=== PATIENT | female | born 1985 | race Caucasian/White ===

== ENCOUNTER → 2017-10-18 07:18 | Outpatient (CLI) | payer BC, SELFPAY ==
[2017-10-18 09:21] LABS: Alanine Aminotransferase 19 U/L (12-78); Albumin Level 3.4 gm/dL (3.4-5.0); Alkaline Phosphatase 41 U/L (46-116); Anion Gap 13.4 mEq/L (5-15); Aspartate Amino Transferase 10 U/L (15-37); Bilirubin,Total 0.5 mg/dL (0.2-1.0); Blood Urea Nitrogen 13 mg/dL (7-18); Calcium 8.5 mg/dL (8.5-10.1); Carbon Dioxide 26 mmol/L (21.0-32.0); Chloride 108 mmol/L (98-107); Chol/HDL Ratio 2.3 (1-3.5); Cholesterol 187 mg/dL (140-200); Creatinine,Serum 0.76 mg/dL (0.55-1.02); Estimated Glomerular Filt Rate 88 ml/min (>60); GFR (African American) 107 ML/MIN (>60); Globulin 3.3 gm/dl (1.3-3.2); Glucose 88 mg/dL (74-106); HDL Cholesterol 83 mg/dL (29-89); LDL Cholesterol 91 mg/dL (0-130); Potassium 4.4 mmoL/L (3.5-5.1); Sodium 143 mmol/L (136-145); Thyroid Stimulating Hormone 0.95 uIU/ml (0.358-3.740); Total Protein,Serum 6.7 gm/dL (6.4-8.2); Triglycerides 66 mg/dL (30-200); VLDL Cholesterol 13 mg/dL (0-40)
== END ==
PROVIDERS: PCP Physician Assistant; Visit Provider Physician Assistant
DX: Z13.29 Encounter for screening for other suspected endocrine disorder (principal); Z13.220 Encounter for screening for lipoid disorders
CPT/HCPCS: 36415; 80053; 80061; 84443

== ENCOUNTER → 2019-03-17 11:28 | Outpatient (CLI) | payer BC, SELFPAY ==
[2019-03-18 18:24] LABS: H. pylori Breath Test Negative (Negative)
== END ==
PROVIDERS: Visit Provider Physician Assistant
DX: R10.13 Epigastric pain (principal)
CPT/HCPCS: 83013

== ENCOUNTER → 2019-03-18 09:56 | Outpatient (CLI) | payer BC, SELFPAY | PROVIDERS: PCP Family Medicine; Visit Provider Physician Assistant | DX: R55 Syncope and collapse (principal) | CPT/HCPCS: 93225; 93226 ==

== ENCOUNTER → 2019-06-01 15:33 | Outpatient (CLI) | payer BC, SELFPAY ==
--- NOTE | 2019-06-01 15:42 | XR_ITS ---
PROCEDURE: XR KNEE LT 4V CLINICAL INDICATION: PATELLAR TENDONITIS OF LT KNEE Knee pain COMPARISON: No exams were available for comparison FINDINGS: There are mild osteoarthritic changes of all 3 compartments. No fracture or dislocation. No lytic or blastic change. There is a small loose body along the anterior aspect of the knee joint at approximately 5 mm. IMPRESSION: Osteoarthritis with loose body Dictated by: Hdaley Conway MD 06/01/2019 16:13 Electronically signed by Hadley Conway MD in [place] 06/01/2019 16:13
== END ==
PROVIDERS: PCP Physician Assistant; Visit Provider Physician Assistant
DX: M76.52 Patellar tendinitis, left knee (principal)
CPT/HCPCS: 73564

== ENCOUNTER → 2019-10-26 07:11 | Outpatient (CLI) | payer BC, SELFPAY ==
[2019-10-26 08:18] LABS: Hemoglobin A1C 5.1 % (0.0-7.0)
[2019-10-26 09:38] LABS: Chol/HDL Ratio 2.3 (1-3.5); Cholesterol 185 mg/dL (140-200); HDL Cholesterol 81 mg/dL (29-89); Triglycerides 91 mg/dL (30-200); VLDL Cholesterol 18 mg/dL (0-40)
[2019-10-26 09:53] LABS: Basophils # 0.1 K/mm3 (0-0.2); Basophils % 1.1 % (0.1-2.0); Eosinophils # 0.2 K/mm3 (0.0-0.4); Eosinophils % 3.5 % (0.1-12.0); Hematocrit 38.9 % (37.0-47.0); Hemoglobin 13.1 g/dL (12.2-16.2); Lymphocytes # 2.1 K/mm3 (0.7-4.5); Lymphocytes % 32.7 % (10-50); Mean Corpuscular HGB Conc 33.8 g/dL (31.8-35.4); Mean Corpuscular Volume 91.6 fl (81-99); Mean Platelet Volume 8.5 fl (7.4-10.4); Monocytes # 0.3 K/mm3 (0.1-1.0); Neutrophils # 3.8 K/mm3 (1.8-7.8); Neutrophils % 57.7 % (37.0-80.0); Platelet Count 303 K/mm3 (142-424); Red Blood Count 4.24 M/mm3 (4.20-5.40); Red Cell Distribution Width 12.6 % (11.5-17.5); White Blood Count 6.5 K/mm3 (4.8-10.8)
[2019-10-26 10:38] LABS: Alanine Aminotransferase 14 U/L (12-78); Albumin Level 3.9 g/dl (3.5-5.0); Alkaline Phosphatase 55 U/L (38-126); Aspartate Amino Transferase 22 U/L (14-36); Bilirubin,Total 0.4 mg/dl (0.2-1.3); Blood Urea Nitrogen 14 mg/dl (7-17); Calcium 9.3 mg/dl (8.4-10.2); Carbon Dioxide 27 mmol/L (22.0-30.0); Chloride 104 mmol/L (98-107); Estimated Glomerular Filt Rate 82 ml/min (>60); GFR (African American) 99 ML/MIN (>60); Glucose 98 mg/dl (74-100); Sodium 137 mmol/L (136-145); Total Protein,Serum 6.7 g/dl (6.3-8.2)
[2019-10-26 11:09] LABS: Thyroid Stimulating Hormone 1.66 uIU/mL (0.465-4.68)
[2019-10-26 11:38] LABS: Albumin/Globulin Ratio 1.4 (1.1-1.8)
[2019-10-26 11:39] LABS: Globulin 2.8 g/dL (1.3-3.2)
[2019-10-26 23:31] LABS: Direct LDL Cholesterol 98.12 mg/dL (100-129)
[2019-10-27 07:17] LABS: HIV Screen 4th Generation wRfx Non Reactive (Non Reactive)
[2019-10-29 09:36] LABS: Hepatitis B Surface Antigen Negative (Negative); Rapid Plasma Reagin Ab Titer Non Reactive (NonRea<1:1)
== END ==
PROVIDERS: Visit Provider Student in an Organized Health Care Education/Training Program
DX: Z11.3 Encounter for screening for infections with a predominantly sexual mode of transmission (principal)
CPT/HCPCS: 36415; 80053; 80061; 83036; 84443; 85025; 86592; 86703; 87340; G0432

== ENCOUNTER 2020-07-03 08:32 | Emergency (ER) | payer BC, SELFPAY ==
[2020-07-03 08:38] VITALS: BP 128/86; PULSE 79; RESP 18; TEMP 36.7; O2SAT 100; BMI 24.2
--- NOTE | 2020-07-03 08:41 | XR_ITS ---
PROCEDURE: XR ANKLE RT 2V CLINICAL INDICATION: fall Pain COMPARISON: No exams were available for comparison FINDINGS: Nondisplaced fracture dorsal and proximal aspect of the navicular. There is a faint calcific density along the anterior and distal aspect of the tibia which could be due to small avulsion injury age indeterminate. IMPRESSION: Age indeterminate fracture of the anterior and proximal aspect of the navicular as well as the anterior distal tibia Dictated by: Hadley Conway MD 07/03/2020 09:06 Hadley Conway MD in [place] 07/03/2020 09:06
--- NOTE | 2020-07-03 08:42 | XR_ITS ---
PROCEDURE: XR FOOT RT MIN 3V CLINICAL INDICATION: fall Posttraumatic pain COMPARISON: No exams were available for comparison FINDINGS: There is a nondisplaced oblique fracture through the proximal and dorsal aspect of the navicular age indeterminate. The joint spaces are well-preserved. No significant degenerative/arthritic changes. No erosive changes evident. Other findings:None. IMPRESSION: Nondisplaced age indeterminate fracture dorsal and proximal aspect of the navicular Dictated by: Hadley Conway MD 07/03/2020 09:07 Hadley Conway MD in [place] 07/03/2020 09:07
--- NOTE | 2020-07-03 08:43 | HMH.EDGENADL ---
ED Disposition Clinical Impression: Avulsion fracture of right ankle Qualifiers: Encounter type: initial encounter Fracture type: closed Qualified Code(s): S82.891A - Other fracture of right lower leg, initial encounter for closed fracture Navicular fracture, foot Qualifiers: Encounter type: initial encounter Fracture type: closed Fracture alignment: nondisplaced Laterality: right Qualified Code(s): S92.254A - Nondisplaced fracture of navicular [scaphoid] of right foot, initial encounter for closed fracture Disposition: Home, Self-Care Condition on Discharge: Good Instructions: How to Prevent Falls Additional Instructions: You were seen on an emergency basis. It is very important that you follow up with your primary care provider and/or specialist as we discussed within 2 days. All labs and imaging were obtained and interpreted here to rule out life threatening emergencies, but your final results should be reviewed by your primary doctor at your follow up appointment. Please return to the emergency department if any of your symptoms worsen, or if they do not improve as we discussed. Referrals: Prabha Collado MD [Primary Care Provider] - Estuardo Owen MD [Staff Physician] - - Critical Care Critical Care Time: No Attestation: On , the high probability of a clinically significant, sudden or life threatening deterioration of the following system(s) required my full and direct attention, intervention and personal management. The time I documented below is in addition to time spent performing reported procedures but includes the following listed in this critical care notation. Medical Decision Making - Medical Records Medical records reviewed: Yes: I reviewed the patient's medical records. - Negro Inquiry Pt receiving controlled substance: No Vital Signs: 07/03/20 08:38 07/03/20 09:11 Temperature 98.1 F Temperature Source Oral Pulse Rate [Radial] 79 76 Respiratory Rate 18 Blood Pressure [Right Arm] 128/86 114/71 Blood Pressure Mean [Right Arm] 100 85 Blood Pressure Source [Right Arm] Automatic Cuff Automatic Cuff Blood Pressure Position [Right Arm] Sitting Sitting 02 Sat by Pulse Oximetry 100 100 Oxygen Delivery Method Room Air Room Air Medical Decision Narrative: 35-year-old female presenting after an ankle injury from a fall. Distal neurovascularly intact. X-rays obtained of the right foot and ankle which showed a nondisplaced navicular fracture and a possible avulsion fracture of the ankle. No clinical suspicion for Maisonneuve injury. Pain under control here. Place the patient in an Ortho boot, give her crutches and keep her nonweightbearing until follow-up with orthopedics. General Adult HPI - General Chief complaint: Fall Stated complaint: ao 1026 @ 0700 injury R foot Time Seen by Provider: 07/03/20 08:44 Mode of Arrival: Ambulatory Limitations: No Limitations Description of Symptoms (Recalled from ER Triage Doc. by RN): fell down a couple of stairs and hurt right ankle. - History of Present Illness HPI narrative: Presenting with an ankle injury that occurred shortly prior to presentation. Patient was walking down a step when she had a eversion injury to her right ankle down 1 step. Her pain is localized to her anterior ankle. She has been ambulatory since. She took Tylenol for the symptoms which have helped. Head strike, loss of consciousness or other injuries. - Related Data Previous Rx's Medication Instructions Recorded Azithromycin [Z-Hardik 250mg Tab*] 250 mg PO UD DOSE PK #6 tab 07/28/19 Brompheniramine/Pseudoephed/Dm 5 ml PO Q6HP PRN #240 syrup 07/28/19 [Bromfed Dm Cough Syrup] methylPREDNISolone [Medrol] 4 mg PO DIRECTED 6 Days #21 07/28/19 tab.ds.pk Allergies Allergy/AdvReac Type Severity Reaction Status Date / Time PENICILLIN Allergy Severe C-[id number]-TWFM/THROAT, Uncoded 08/26/17 14:46 [facility] History - Hepatitis A Scree
--- NOTE | 2020-07-03 08:46 | PC.NURSE ---
pt with rad. v/s delayed.
[2020-07-03 09:11] VITALS: BP 114/71; PULSE 76; O2SAT 100
[2020-07-03 09:25] VITALS: BP 114/71; PULSE 76; RESP 18; TEMP 36.7; O2SAT 100
== END 2020-07-03 09:26 | disposition home or self-care (01) ==
PROVIDERS: Emergency Provider Physician Assistant; PCP Family Medicine
DX: S92.254A Nondisplaced fracture of navicular [scaphoid] of right foot, initial encounter for closed fracture (principal); W10.9XXA Fall (on) (from) unspecified stairs and steps, initial encounter; Y92.019 Unspecified place in single-family (private) house as the place of occurrence of the external cause
CPT/HCPCS: 29515; 73600; 73630; 99284

== ENCOUNTER 2020-07-09 09:28 | Emergency (ER) | payer BC, SELFPAY ==
[2020-07-09 09:40] VITALS: BP 143/87; PULSE 91; RESP 20; TEMP 37.1; O2SAT 99; BMI 34.2
--- NOTE | 2020-07-09 10:13 | HMH.EDUTC ---
[facility] [place] Clinical Impression: UTI (urinary tract infection) Qualifiers: Urinary tract infection type: site unspecified Hematuria presence: without hematuria Qualified Code(s): N39.0 - Urinary tract infection, site not specified Disposition: Home, Self-Care Condition on Discharge: Good Instructions: Urinary Tract Infection, DI for Urinary Tract Infection (UTI), Nitrofurantoin, Phenazopyridine Additional Instructions: *Increase fluids. Water not Soda or Tea *Start antibiotic immediately and be sure to take as ordered for the FULL length of time although you should start to see improvement over the next 48 hours *Pyridium as needed Remember this medication will turn your urine [place]. This is normal but it will stain what ever it gets on *You should not use Pyridium for more than 48 hours. If so , follow up with your primary physician to review urine culture and ensure that antibiotic is adequate for infection *Be SURE to follow up anytime for new or worsening symptoms with your family doctor. AND in 48 hours for urine culture results with your family doctor, if you do not have a doctor then you may call back to the [facility] for urine culture results and further treatment. We do recommend that you choose and establish care with a Primary Care Physician. AND follow up with them in 10-14 days to repeat UA to ensure infection is resolved and blood no longer present *Be sure to let your PCP know that we sent urine cultures from the [facility] so they can follow up to ensure that you area the on the correct antibiotic Call your doctor office and make appointment for 48 hours (2 days from today) to follow up and get the results of your urine culture and further treatment Return if needed Straight to ER if any life threatening symptoms Prescriptions: Nitrofurantoin Monohyd/M-Cryst [Macrobid 100 mg Capsule] 100 mg PO BID 10 Days #20 cap Transmission Status: Pending to [facility] # Phenazopyridine HCl [Pyridium 200mg Tablet] 200 pow PO TID #6 tab Transmission Status: Pending to [facility] # Referrals: Prabha Collado MD [Primary Care Provider] - As needed Time of Disposition: 10:18 Medical Decision Making - Negro Inquiry Pt receiving controlled substance: No Negro was queried for this patient: No Vital Signs: 07/09/20 09:40 Temperature 98.8 F Temperature Source Oral Pulse Rate [Radial] 91 H Respiratory Rate 20 Blood Pressure [Right Arm] 143/87 H Blood Pressure Mean [Right Arm] 105 Blood Pressure Source [Right Arm] Automatic Cuff Blood Pressure Position [Right Arm] Sitting 02 Sat by Pulse Oximetry 99 Oxygen Delivery Method Room Air - Lab Data Lab results reviewed: Yes: I reviewed the patient's lab results. Orders (Tests/Meds): ORDERS Category Date Time Status Urine Culture Stat Micro 07/09/20 09:50 Received Medical Decision Narrative: Denies [facility] [place] - General Stated complaint: possible uti Time Seen by Provider: 07/09/20 10:13 Mode of Arrival: Ambulatory Source of Information: Patient Limitations: No Limitations Description of Symptoms (Recalled from Triage Doc. by RN): possible uti HEENT Symptoms (Recalled from RN notes): No Resp Symptoms (Recalled from RN notes): No Skin Symptoms (Recalled from RN notes): No MS Symptoms (Recalled from RN notes): No Functional Status (Recalled from RN notes): wnl - History of Present Illness Provider Complaint: Patient states that she thinks she may have a UTI states that she has been having some burning with urination and feeling like she has to urinate more freqently than she normally does so she came in to get checked - Related Data Previous Rx's Medication Instructions Recorded Azithromycin [Z-Hardik 250mg Tab*] 250 mg PO UD DOSE PK #6 tab 07/28/19 Brompheniramine/Pseudoephed/Dm 5 ml PO Q6HP PRN #240 syrup 07/28/19 [Bromfed Dm Cough Syrup] methylPREDNISolone [Medrol] 4 mg PO DIRECTED 6 Days #21 07/28/19
[2020-07-09 10:30] VITALS: BP 143/87; PULSE 91; RESP 20; TEMP 37.1; O2SAT 99
[2020-07-09 16:33] LABS: Apearance,Urine Clear (Clear); Color,Urine Yellow (Yellow); Glucose,Urine (UA) Negative (Negative); Ketones,Urine Negative (Negative); Protein,Urine Negative (Negative)
[2020-07-09 16:34] LABS: Bilirubin,Urine Negative (Negative); Blood, Urine Negative (Negative); UTC Leukocyte Esterase,Urine 1+ (Negative); UTC Nitrate,Urine Negative (Negative); Urobilinogen,Urine 0.2 EU/dl (0.2)
== END 2020-07-09 10:31 | disposition home or self-care (01) ==
PROVIDERS: Emergency Provider Nurse Practitioner; PCP Family Medicine
DX: N30.00 Acute cystitis without hematuria (principal)
CPT/HCPCS: 81003; 87086; 87880; 99201

== ENCOUNTER → 2020-08-07 10:47 | Outpatient (CLI) | payer BC, SELFPAY ==
--- NOTE | 2020-08-07 11:17 | XR_ITS ---
PROCEDURE: XR FINGER RT MIN 2V CLINICAL INDICATION: RT TRIGGER FINGER PAIN COMPARISON: No exams were available for comparison FINDINGS: No fracture or dislocation. No lytic or blastic change. There is normal mineralization. The joint spaces are well-preserved. No significant degenerative/arthritic changes. No erosive changes evident. Other findings:None. IMPRESSION: Negative right middle finger Dictated by: Hadley Conway MD 08/07/2020 12:08 Hadley Conway MD in [place] 08/07/2020 12:08
== END ==
PROVIDERS: PCP Family Medicine; Visit Provider Nurse Practitioner Family
DX: M65.331 Trigger finger, right middle finger (principal)
CPT/HCPCS: 73140

== ENCOUNTER 2020-11-26 09:09 | Emergency (ER) | payer BC, SELFPAY ==
[2020-11-26 09:10] VITALS: BP 115/78; PULSE 89; RESP 20; TEMP 36.9; O2SAT 100; BMI 34.2
[2020-11-26 09:28] LABS: Apearance,Urine Clear (Clear); Bilirubin,Urine Negative (Negative); Blood, Urine Negative (Negative); Color,Urine Yellow (Yellow); Glucose,Urine (UA) Negative (Negative); Ketones,Urine Negative (Negative); PH,Urine 7.5 (5.0-8.5); Protein,Urine Negative (Negative); Urobilinogen,Urine 0.2 EU/dl (0.2)
[2020-11-26 09:29] LABS: UTC Leukocyte Esterase,Urine 1+ (Negative); UTC Nitrate,Urine Negative (Negative); UTC Pregnancy Test, Urine Negative (Negative)
--- NOTE | 2020-11-26 09:43 | HMH.EDUTC ---
[facility] [place] Impression: UTI (urinary tract infection) Qualifiers: Urinary tract infection type: site unspecified Hematuria presence: without hematuria Qualified Code(s): N39.0 - Urinary tract infection, site not specified Low back ache Qualifiers: Chronicity: unspecified Back pain laterality: midline Sciatica presence: without sciatica Qualified Code(s): M54.5 - Low back pain Disposition: Home, Self-Care Condition on Discharge: Good Instructions: Low Back Pain, DI for Low Back Pain, DI for Urinary Tract Infection (UTI) Additional Instructions: *Increase fluids. Water not Soda or Tea *Start antibiotic immediately and be sure to take as ordered for the FULL length of time although you should start to see improvement over the next 48 hours *Be SURE to follow up anytime for new or worsening symptoms with your family doctor. AND in 48 hours for urine culture results with your family doctor, if you do not have a doctor then you may call back to the [facility] for urine culture results and further treatment. We do recommend that you choose and establish care with a Primary Care Physician. AND follow up with them in 10-14 days to repeat UA to ensure infection is resolved and blood no longer present *Be sure to let your PCP know that we sent urine cultures from the [facility] so they can follow up to ensure that you area the on the correct antibiotic Call your doctor office and make appointment for 48 hours (2 days from today) to follow up and get the results of your urine culture and further treatment Prescriptions: Sulfamethoxazole/Trimethoprim [Bactrim DS tablet] 1 each PO BID 3 Days #6 tab Transmission Status: Pending to [facility] #[id number] Referrals: Prabha Collado MD [Primary Care Provider] - As needed Time of Disposition: 09:47 Medical Decision Making - Negro Inquiry Pt receiving controlled substance: No Negro was queried for this patient: No Vital Signs: 11/26/20 09:10 Temperature 98.4 F Temperature Source Oral Pulse Rate [Right Brachial] 89 Respiratory Rate 20 Blood Pressure [Right Arm] 115/78 Blood Pressure Mean [Right Arm] 90 Blood Pressure Source [Right Arm] Automatic Cuff Blood Pressure Position [Right Arm] Sitting 02 Sat by Pulse Oximetry 100 Oxygen Delivery Method Room Air - Lab Data Lab results reviewed: Yes: I reviewed the patient's lab results. Lab Results 11/26/20 09:22: Urine Color Yellow, Urine Appearance Clear, Urine pH 7.5, Ur Specific [place] 1.020, Urine Protein Negative, Urine Glucose (UA) Negative, Urine Ketones Negative, Urine Blood Negative, Urine Nitrate Negative, Urine Bilirubin Negative, Urine Urobilinogen 0.2, Ur Leukocyte Esterase 1+ A, Tst Clinic Negative Orders (Tests/Meds): ORDERS Category Date Time Status Urine Culture Stat Micro 11/26/20 09:27 Ordered Medical Decision Narrative: Patient urine checked and leukocytes noted Will send urine for culture and place patient on Bactrim DS BID x 3 days and have her follow up for urine culture and assess if back pain gone or improved. Denies radiation of pain or loss of control of bowel or bladder [facility] [place] General Stated complaint: back pain, no accident Time Seen by Provider: 11/26/20 09:43 Mode of Arrival: Ambulatory Source of Information: Patient Limitations: No Limitations Description of Symptoms (Recalled from Triage Doc. by RN): PATIENT C/O LOWER BACK PAIN X 2 DAYS. NO KNOWN INJURY HEENT Symptoms (Recalled from RN notes): No Resp Symptoms (Recalled from RN notes): No Skin Symptoms (Recalled from RN notes): No MS Symptoms (Recalled from RN notes): Yes Functional Status (Recalled from RN notes): WNL - History of Present Illness Provider Complaint: Patient states that she has been working out alot lately and sit for awhile in a chair getting her hair done and for the last couple of days she has been having achy like feeling in her lower back area State that today she got up and she was s
[2020-11-26 09:45] VITALS: BP 115/78; PULSE 89; RESP 20; TEMP 36.9; O2SAT 100
== END 2020-11-26 09:50 | disposition home or self-care (01) ==
PROVIDERS: Emergency Provider Nurse Practitioner; PCP Family Medicine
DX: N30.00 Acute cystitis without hematuria (principal); M54.5 Low back pain; Z88.0 Allergy status to penicillin
CPT/HCPCS: 81003; 81025; 87086; 99202; G0463

== ENCOUNTER → 2021-12-24 12:07 | Outpatient (CLI) | payer BC, SELFPAY ==
--- NOTE | 2021-12-24 12:15 | XR_ITS ---
FINAL REPORT CLINICAL HISTORY: LOW BACK PAIN FINDINGS: 5 views of the lumbar spine were obtained. There is no evidence of fracture or dislocation. The vertebral alignment is normal. There are mild degenerative changes. No paraspinous soft tissue abnormalities identified. IMPRESSION: No acute bony abnormality. Reviewed, Interpreted and Dictated by Boby Kaur III, MD Transcribed by Kristi Whitney Authenticated by Boby Kaur III, MD on 12/24/2021 02:05:55 PM [facility]
== END ==
PROVIDERS: PCP Physician Assistant; Visit Provider Nurse Practitioner Family
DX: S39.012A Strain of muscle, fascia and tendon of lower back, initial encounter (principal)
CPT/HCPCS: 72110

== ENCOUNTER → 2022-02-11 10:39 | Outpatient (CLI) | payer BC, SELFPAY ==
--- NOTE | 2022-02-11 10:50 | ECG_ITS ---
APPROVED REPORT Exam: Resting ECG HR:63 bpm ECG Measurements Heart Rate 63 AXES TX 145 P 53 QRSd 102 QRS 36 QT 386 T 24 QTc 394 Conclusion SINUS RHYTHM WITH MARKED SINUS ARRHYTHMIA BORDERLINE ECG UNCONFIRMED REPORT Electronically signed by : Dane Arredondo MD 02/12/2022 18:42:23
== END ==
PROVIDERS: PCP Physician Assistant; Visit Provider Nurse Practitioner Family
DX: F41.9 Anxiety disorder, unspecified (principal)
CPT/HCPCS: 93005

== ENCOUNTER → 2022-06-13 16:42 | Outpatient (CLI) | payer BC, SELFPAY | PROVIDERS: PCP Family Medicine; Visit Provider Physician Assistant | DX: R06.83 Snoring; R06.81 Apnea, not elsewhere classified | CPT/HCPCS: G0399 ==

== ENCOUNTER 2022-12-30 18:31 | Emergency (ER) | payer BC, SELFPAY ==
[2022-12-30 18:45] VITALS: BP 130/78; PULSE 70; RESP 19; TEMP 36.9; O2SAT 98; BMI 33.9
--- NOTE | 2022-12-30 18:56 | EXP.UTC ---
Discharge Plan Disposition Patient Disposition: Home, Self-Care Condition: Good Prescriptions Prescriptions: New azithromycin [Zithromax Z-Hardik] 250 mg tablet See Rx Instructions .ROUTE .COMPLEX 5 Days Qty: 6 0RF Rx Instructions: For 250 mg dose pack: take 500 mg today (day 1), then 250 mg for 4 days (days 2-5) benzonatate 100 mg capsule 100 mg PO TID PRN (Reason: cough) Qty: 15 0RF methylprednisolone [Medrol (Hardik)] 4 mg tablets,dose pack See Rx Instructions .Route .COMPLEX 6 Days Qty: 21 0RF Rx Instructions: taper pack; No Action venlafaxine [Effexor XR] 37.5 mg capsule,extended release 24hr 37.5 mg PO DAILY norgestimate-ethinyl estradiol 1 EACH tablet 1 each PO DAILY Referrals Follow up/Referrals: Rima Mak PA [Primary Care Provider] - See instructions Activity Restrictions/Add. Instructions Additional Instructions/Restrictions: *Monitor Temp, Over the counter Motrin or Tylenol as directed/as needed Tylenol every 4 hours and Motrin every 6 hours (as long as your family doctor has told you that you can take it) for fever or pain. and straight to ER if unable to lower temp less than 101.0 after medication given *Warm salt water gargles may help to soothe the throat *Throat Lozenges? *Warm fluids like tea with honey may help to soothe the throat? *Sleep elevated *Humidifier/Vaporizer *If you did not take Penicillin shot or was unable to, start taking antibiotic immediately and make sure that you take it for the FULL length of time although you should start to feel better in 24-48 hours *change toothbrush and toothpaste 24-48 hours after starting to take antibiotics so you do not reinfect yourself Monitor Temp. Tylenol and/or Ibuprofen as needed. ER if fever is no less than 101 despite alternating Tylenol and Ibuprofen * Encourage fluids, water, Gatorade, powerade, pedialyte if infant/toddler/or child *Cold fluids, popsicles and ice cream may feel good on his throat Follow up IMMEDIATELY for new or worsening symptoms or no Noticeable improvement over the next 48-72 hours. 911 for difficulty breathing or swallowing Clinical Impressions Clinical Impression: Strep throat Stand Alone Forms Stand Alone Forms: Work/School Release Instructions Patient Instructions: Strep Throat, DI for Strep Throat Discharge ED Provider: Vida Florentino [facility] [place] HPI General Stated complaint: Wants tested for step throat Time Seen by Provider: 12/30/22 18:56 History of Present Illness Provider Complaint: Patient states that she has been having sore throat, cough and nasal congestion for several days States that she took an at home COVID test and it was negative States that she feels like she may have strep throat Related Data Home Medications Medication Instructions Recorded Confirmed venlafaxine 37.5 mg 37.5 mg PO DAILY . 08/25/20 12/30/22 capsule,extended release 24 hr (Effexor XR) norgestimate 0.25 mg-ethinyl 1 each PO DAILY control 11/26/20 12/30/22 estradiol 35 mcg tablet Previous Rx's Medication Instructions Recorded azithromycin 250 mg tablet See Rx Instructions PO .COMPLEX 5 12/30/22 (Zithromax Z-Hardik) days #6 tabs benzonatate 100 mg capsule 100 mg PO TID PRN cough #15 caps 12/30/22 methylprednisolone 4 mg tablets in See Rx Instructions .Route 12/30/22 a dose pack (Medrol (Hardik)) .COMPLEX 6 days #21 tabs Allergies Allergy/AdvReac Type Severity Reaction Status Date / Time Penicillins Allergy Verified 12/30/22 19:01 [facility] Disclaimer: The information contained in this section may have been updated after the patient was seen, as this information can be updated by other users. Family History (Updated 07/03/22 @ 08:35 by Lissette Jean) Other Cancer Heart attack Thyroid disorder Social History (Updated 07/03/22 @ 08:36 by Lissette Jean) Smoking Status: Never smoker alcohol intake: current substance u
[2022-12-30 18:59] LABS: UTC Strep Screen (Rapid) Positive (Negative)
[2022-12-30 19:27] VITALS: BP 130/78; PULSE 70; RESP 20; TEMP 36.9; O2SAT 98
== END 2022-12-30 19:27 | disposition home or self-care (01) ==
PROVIDERS: Emergency Provider Nurse Practitioner; PCP Physician Assistant
DX: J02.0 Streptococcal pharyngitis (principal)
CPT/HCPCS: 87880; 99204; 99212; G0463